=== PATIENT | male | born 1940 | race Caucasian/White ===

== ENCOUNTER → 2023-01-28 | Day surgery (SDC) | payer OTHER, MEDICAID ==
[~2023-01-28] VITALS: Ht 157.5 cm; Wt 50.0 kg
[~2023-01-28] MED LIST: BALANCED SALT 15 ML OPHTHALMIC IRRIG.SOLN ONE; EPINEPHrine 1:1,000 [1 MG/ML] VIAL ONE; FentaNYL CITRATE PF 100 MCG/2 ML VIAL IVP ONE; HYALURONATE SOD 8.5MG/0.85ML 10 MG/ML SYRINGE IO ONE; KETOROLAC TROMETHAMINE 0.5% 5 ML OPHTHALMIC SOLUTION ONE; LIDOCAINE/PF 1% 2 ML VIAL ONE; MIDAZOLAM HCL 2 MG/2 ML VIAL IVP ONE; MOXIFLOXACIN HCL 0.5% 3 ML OPHTHALMIC SOLUTION ONE; PHENYLEPHRINE HCL 2.5% 2 ML OPHTHALMIC SOLUTION ONE; POVIDONE-IODINE 5% 30 ML OPHTHALMIC SOLUTION ONE; RINGERS SOLUTION,LACTATED 500 ML IV ONE; TETRACAINE HCL/PF 0.5% 4 ML OPHTHALMIC SOLUTION ONE; TROPICAMIDE 1% 2 ML OPHTHALMIC SOLUTION ONE
[2023-01-28] MEDS: MOXIFLOXACIN HCL 0.5% 3 ML OPHTHALMIC SOLUTION OD SCH ×3 (09:56→10:05)
[2023-01-28] MEDS: PHENYLEPHRINE HCL 2.5% 2 ML OPHTHALMIC SOLUTION OD SCH ×3 (09:56→10:05)
[2023-01-28] MEDS: TROPICAMIDE 1% 2 ML OPHTHALMIC SOLUTION OD SCH ×3 (09:56→10:05)
[2023-01-28] MEDS: KETOROLAC TROMETHAMINE 0.5% 5 ML OPHTHALMIC SOLUTION OD SCH ×3 (09:57→10:05)
[2023-01-28 10:05] LABS: GLUCOMETER DEV NAME(LOC) SDS.; GLUCOSE,POINT OF CARE 96 MG/DL (70-110)
== END | disposition still patient (30) ==
LOC: SURGERY 08:30
PROVIDERS: ATTEND Ophthalmology
DX: E10.36 Type 1 diabetes mellitus with diabetic cataract (principal); H25.11 Age-related nuclear cataract, right eye; I10 Essential (primary) hypertension; Z98.890 Other specified postprocedural states; Z72.89 Other problems related to lifestyle; Z79.4 Long term (current) use of insulin; Z79.899 Other long term (current) drug therapy
CPT/HCPCS: 66984; 93005; 82962; J0171; J3010; J3490; J2250; Q9967; J7120; V2632

== ENCOUNTER 2023-02-25 05:12 | Day surgery (SDC) | payer OTHER, MEDICAID ==
[~2023-02-25] VITALS: Ht 157.5 cm; Wt 50.9 kg
[2023-02-25] MEDS ORDERED: MIDAZOLAM HCL 2 MG/2 ML VIAL IVP ONE (05:13)
[2023-02-25] MEDS ORDERED: CHONDR SULF A SOD/HYALURONATE 1.05 ML KIT IO ONE (05:13)
[2023-02-25] MEDS ORDERED: FentaNYL CITRATE PF 100 MCG/2 ML VIAL IVP ONE (05:13)
[2023-02-25] MEDS ORDERED: RINGERS SOLUTION,LACTATED 500 ML IV ONE ×2 (05:30→05:42)
[2023-02-25] MEDS ORDERED: KETOROLAC TROMETHAMINE 0.5% 5 ML OPHTHALMIC SOLUTION ONE (05:41)
[2023-02-25] MEDS ORDERED: TROPICAMIDE 1% 2 ML OPHTHALMIC SOLUTION ONE (05:41)
[2023-02-25] MEDS ORDERED: MOXIFLOXACIN HCL 0.5% 3 ML OPHTHALMIC SOLUTION ONE (05:41)
[2023-02-25] MEDS ORDERED: PHENYLEPHRINE HCL 2.5% 2 ML OPHTHALMIC SOLUTION ONE (05:41)
[2023-02-25] MEDS: KETOROLAC TROMETHAMINE 0.5% 5 ML OPHTHALMIC SOLUTION OS SCH ×3 (06:14→06:48)
[2023-02-25] MEDS: MOXIFLOXACIN HCL 0.5% 3 ML OPHTHALMIC SOLUTION OS SCH ×3 (06:14→06:48)
[2023-02-25] MEDS: TROPICAMIDE 1% 2 ML OPHTHALMIC SOLUTION OS SCH ×3 (06:14→06:48)
[2023-02-25] MEDS: PHENYLEPHRINE HCL 2.5% 2 ML OPHTHALMIC SOLUTION OS SCH ×3 (06:15→06:48)
[2023-02-25] MEDS ORDERED: METF-1211 PO (06:47)
[2023-02-25] MEDS ORDERED: EMPA10TA3 PO (06:47)
[2023-02-25] MEDS ORDERED: LISI-892 PO (06:47)
[2023-02-25] MEDS ORDERED: FERR325T27 PO (06:47)
[2023-02-25] MEDS ORDERED: EPINEPHrine 1:1,000 [1 MG/ML] VIAL ONE (06:55)
[2023-02-25] MEDS ORDERED: LIDOCAINE/PF 1% 2 ML VIAL ONE ×2 (06:56→07:11)
[2023-02-25] MEDS ORDERED: TETRACAINE HCL/PF 0.5% 4 ML OPHTHALMIC SOLUTION ONE (06:57)
[2023-02-25] MEDS ORDERED: BALANCED SALT 15 ML OPHTHALMIC IRRIG.SOLN ONE (06:59)
[2023-02-25] MEDS ORDERED: TAMS0.4C94 PO (07:02)
[2023-02-25] MEDS ORDERED: MIRA50TA PO (07:02)
[2023-02-25] MEDS ORDERED: INSLAN SQ (07:03)
[2023-02-25] MEDS ORDERED: ALBU18HF12 IH (07:05)
[2023-02-25 09:21] LABS: GLUCOMETER DEV NAME(LOC) SDS.; GLUCOSE,POINT OF CARE 88 MG/DL (70-110)
== END 2023-02-25 10:10 | disposition home or self-care (01) ==
LOC: SURGERY 05:12
PROVIDERS: ATTEND Ophthalmology
DX: E11.36 Type 2 diabetes mellitus with diabetic cataract (principal); H25.12 Age-related nuclear cataract, left eye; Z98.890 Other specified postprocedural states; I10 Essential (primary) hypertension; Z79.899 Other long term (current) drug therapy
CPT/HCPCS: 66984; 82962; J0171; J3010; J3490; J2250; Q9967; J7120; V2632